=== PATIENT | female | born 1970 | race African-American/Black ===

== ENCOUNTER 2019-10-12 10:49 | Emergency (ER) | payer OTHER ==
[~2019-10-12] VITALS: Ht 154.9 cm; Wt 72.7 kg
[2019-10-12 10:54] VITALS: Ht 154.9 cm; Wt 72.7 kg
[2019-10-12] MEDS ORDERED: ZESTORETIC 20-1 EACH PO (10:55)
[2019-10-12] MEDS ORDERED: TOPROL XL25 MG PO (10:56)
[2019-10-12] MEDS ORDERED: POTASSIUM99 M1 (10:56)
[2019-10-12] MEDS ORDERED: ZOCOR20 MG PO (10:56)
[2019-10-12] MEDS ORDERED: FER-IN-SOL DROP50 ML (10:56)
[2019-10-12] MEDS ORDERED: PROTONIX40 MG (10:56)
[2019-10-12 11:21] LABS: APPEARANCE CLEAR (CLEAR); BACTERIA FEW /hpf (NEGATIVE); BILIRUBIN NEGATIVE (NEGATIVE); COLOR YELLOW (YELLOW); EPITHELIAL CELLS 0-5 /hpf (0-5); GLUCOSE NEGATIVE (NEGATIVE); KETONE NEGATIVE (NEGATIVE); NITRITE NEGATIVE (NEGATIVE); PROTEIN NEGATIVE (NEGATIVE); UROBILINOGEN NORMAL (NORMAL); WHITE CELLS - URINE 0-5 /hpf (NEGATIVE)
[2019-10-12 11:25] LABS: BASOPHILS 0.4 % (0-2); EOSINOPHILS 1.4 % (0-7); HEMATOCRIT 38.6 % (36.0-48.0); HEMOGLOBIN 12.4 g/dL (12-16); LYMPHOCYTES 43.8 % (15-50); MCH 24.7 pg (26.0-34.0); MCHC 32.1 g/dL (31.0-37.0); MCV 76.9 fL (80.0-100.0); MEAN PLATELET VOLUME 8.7 fL (7.4-10.4); MONOCYTES 6.5 % (2-11); NEUTROPHILS 47.9 % (40-80); PLATELET COUNT 317 10x3/uL (130-400); RBC 5.02 10x6/uL (4.00-5.40); RDW 15.5 % (11.5-14.5)
[2019-10-12 11:34] LABS: CALC OSMOLALITY 274 mosm/kg (275-300); CALCIUM 8.9 mg/dL (8.5-10.1); CARBON DIOXIDE 33.8 mmol/L (21.0-32.0); CHLORIDE - SERUM 101 mmol/L (98-107); GLUCOSE 106 mg/dL (74-106); POTASSIUM - SERUM 3.1 mmol/L (3.5-5.1); SODIUM 138 mmol/L (136-145); UREA NITROGEN 10 mg/dL (7-18); eGFR NON AFRICAN AMERICAN 63 mL/min (90-120)
[2019-10-12 11:42] LABS: APTT 34.8 SECONDS (22.8-39.4); INR 0.94 (0.85-1.17); PROTIME 12.6 SECONDS (11.6-15.0)
[2019-10-12 11:50] LABS: ALBUMIN 3.8 g/dL (3.4-5.0); ALKALINE PHOSPHATASE 64 U/L (30-120); ALT (SGPT) 24 U/L (10-68); AMYLASE - SERUM 80 U/L (25-115); BILIRUBIN - TOTAL 0.51 mg/dL (0.2-1.3); CKMB 0.9 U/L (0.0-3.6); CREATINE KINASE 663 UL (21-215); LIPASE 135 U/L (73-393); PROTEIN - SERUM 9.2 g/dL (6.4-8.2)
[2019-10-12 11:51] LABS: TROPONIN-I < 0.017 ng/mL (0.000-0.060)
[2019-10-12 17:29] VITALS: BP 136/76
== END 2019-10-12 17:30 | disposition other institution (70) ==
LOC: D.ER 10:49
PROVIDERS: Family Medicine
DX: K92.1 Melena (principal); K92.2 Gastrointestinal hemorrhage, unspecified; R31.9 Hematuria, unspecified; E87.6 Hypokalemia; I10 Essential (primary) hypertension; K21.9 Gastro-esophageal reflux disease without esophagitis; E78.00 Pure hypercholesterolemia, unspecified; Z53.29 Procedure and treatment not carried out because of patient's decision for other reasons